=== PATIENT | male | born 1955 | race Caucasian/White ===

== ENCOUNTER 2017-08-02 12:17 | Emergency (ER) | payer MEDICARE, OTHER ==
[~2017-08-02] VITALS: Ht 172.7 cm; Wt 78.0 kg
[~2017-08-02 12:17] MED LIST: ALENDRONATE PO; BENEPROTEIN; CALCIUM CARB PO; CARBAMAZEPINE PO; MVI PO; PHENOBARBITAL PO; PROMETHAZINE/CODEINE PO; REGULOID PO; TRIAMTERENE PO; VIT D3 PO
[2017-08-02] MEDS ORDERED: TETANUS, DIPHTHERIA, PERTUSSIS VAC/PF 0.5ML (>7YR OLD) IM ONE (15:15)
[2017-08-02 15:35] LABS: BASOPHILS % 0.7 % (0.0-2.0); HEMATOCRIT. 35.1 % (42.0-52.0); HEMOGLOBIN. 12.1 g/dL (14.0-18.0); LYMPHOCYTES % 29.1 % (20.0-50.0); MEAN CORPUSCULAR HEMOGLOBIN 30.3 pg (28.0-32.0); MEAN CORPUSCULAR VOLUME 87.8 fL (80.0-94.0); MEAN PLATELET VOLUME 8.9 fl (7.4-10.4); MONOCYTES % 12.1 % (2.0-8.0); NEUTROPHILS % 52.1 % (40.0-76.0); PLATELET 201 x1000/uL (130-400); RED CELL DISTRIBUTION WIDTH 15.8 % (11.6-14.6)
[2017-08-02 15:44] LABS: CHLORIDE 87 mEq/L (98-107)
[2017-08-02 17:41] VITALS: BP 124/86
== END 2017-08-02 17:49 | disposition left against medical advice (07) ==
LOC: ER 13:32
DX: S01.112A Laceration without foreign body of left eyelid and periocular area, initial encounter (principal); W01.0XXA Fall on same level from slipping, tripping and stumbling without subsequent striking against object, initial encounter; Y93.89 Activity, other specified; Y92.89 Other specified places as the place of occurrence of the external cause; Y99.8 Other external cause status; M81.0 Age-related osteoporosis without current pathological fracture; F84.0 Autistic disorder
CPT/HCPCS: 12011; 36415; 71045; 80053; 85025; 90471; 90715; 93005; 99285

== ENCOUNTER 2018-11-04 21:43 | Emergency (ER) | payer MEDICARE, MEDICAID, OTHER ==
[~2018-11-04] VITALS: Ht 175.3 cm; Wt 64.0 kg
[2018-11-04] MEDS ORDERED: ONDANSETRON HCL 4MG/2ML INJ IV STA (23:35)
[2018-11-04] MEDS ORDERED: SODIUM CHLORIDE 0.9% 1,000 ML IV ONE (23:40)
[2018-11-05 00:10] LABS: BASOPHILS % 0.5 % (0.0-2.0); EOSINOPHILS % 1.5 % (0.0-5.0); HEMATOCRIT. 34.4 % (42.0-52.0); HEMOGLOBIN. 11.7 g/dL (14.0-18.0); LYMPHOCYTES % 9.1 % (20.0-50.0); MEAN CORPUSCULAR HEMOGLOBIN 27.3 pg (28.0-32.0); MEAN CORPUSCULAR VOLUME 80.4 fL (80.0-94.0); MEAN PLATELET VOLUME 7.2 fl (7.4-10.4); MONOCYTES % 5.5 % (2.0-8.0); NEUTROPHILS % 83.4 % (40.0-76.0); PLATELET 325 x1000/uL (130-400); RED BLOOD CELL COUNT 4.28 mill/uL (4.7-6.1); RED CELL DISTRIBUTION WIDTH 16.8 % (11.6-14.6)
[2018-11-05 00:17] LABS: CHLORIDE 93 mEq/L (98-107)
[2018-11-05 00:19] LABS: INR 1.2
[2018-11-05 00:26] LABS: PHENOBARBITAL 36.1 ug/mL (15.0-40.0)
[2018-11-05 00:27] LABS: CARBAMAZEPINE 10.2 ug/mL (4-12)
[2018-11-05] MEDS ORDERED: POTASSIUM CHLORIDE 20MEQ TABLET SR PO ONE (00:30)
[2018-11-05 01:00] LABS: CLARITY URINE CLEAR (CLEAR); COLOR URINE DARK YELLOW (YELLOW); KETONES URINE 1+ (NEGATIVE); LEUKOCYTE ESTERASE URINE NEGATIVE (NEGATIVE); NITRITE URINE NEGATIVE (NEGATIVE); OCCULT BLOOD URINE 1+ (NEGATIVE); PROTEIN URINE TRACE (NEGATIVE)
[2018-11-05] MEDS ORDERED: METOCLOPRAMIDE HCL 10MG/2ML VIAL IV ONE (02:15)
[2018-11-05] MEDS ORDERED: METOCLOPRAMIDE HCL 10MG TABLET PO ONE (04:45)
[2018-11-05 05:07] VITALS: BP 144/94
== END 2018-11-05 05:07 | disposition home or self-care (01) ==
LOC: ER 21:43
DX: E86.0 Dehydration (principal); R11.2 Nausea with vomiting, unspecified; Z79.899 Other long term (current) drug therapy
CPT/HCPCS: 36415; 71045; 74018; 80053; 80156; 80184; 81003; 85025; 85610; 93005; 96361; 96374; 99284; J2405; J8597

== ENCOUNTER 2019-06-19 15:38 | Inpatient (IN) | payer MEDICARE, MEDICAID ==
[~2019-06-19] VITALS: Ht 170.2 cm; Wt 48.1 kg
[2019-06-19] MEDS: KCL 10MEQ/50ML PREMIX 50 ML IV SCH ×4 (03:50→23:14)
[2019-06-19] MEDS ORDERED: SODIUM CHLORIDE 0.9% 1,000 ML IV ONE (17:21)
[2019-06-19] MEDS ORDERED: PIPERACILLIN/TAZ 3.375G PREMIX 50 ML IV ONE (17:30)
[2019-06-19] MEDS ORDERED: VANCOMYCIN 1 G PREMIX 200 ML IV ONE (17:30)
[2019-06-19 17:48] LABS: BASOPHILS % 0.3 % (0.0-2.0); EOSINOPHILS % 1.7 % (0.0-5.0); HEMATOCRIT. 25.8 % (42.0-52.0); HEMOGLOBIN. 8.6 g/dL (14.0-18.0); LYMPHOCYTES % 15.1 % (20.0-50.0); MEAN CORPUSCULAR HEMOGLOBIN 27.1 pg (28.0-32.0); MEAN CORPUSCULAR VOLUME 81.2 fL (80.0-94.0); MEAN PLATELET VOLUME 8.8 fl (7.4-10.4); MONOCYTES % 4.5 % (2.0-8.0); NEUTROPHILS % 78.4 % (40.0-76.0); PLATELET 321 x1000/uL (130-400); RED BLOOD CELL COUNT 3.18 mill/uL (4.7-6.1)
[2019-06-19 17:54] LABS: CHLORIDE 116 mEq/L (98-107)
[2019-06-19] MEDS ORDERED: KCL 20MEQ/100ML PREMIX 100 ML IV ONE (18:15)
[2019-06-19] MEDS ORDERED: ACETAMINOPHEN 325MG TABLET PO PRN (18:30)
[2019-06-19] MEDS ORDERED: DEXT 5% WATER + KCL 40MEQ/L 1,000 ML IV ONE (18:30)
[2019-06-19] MEDS ORDERED: POTASSIUM CHLORIDE 20MEQ/PACKET PO ONE (18:30)
[2019-06-19] MEDS ORDERED: ONDANSETRON HCL 4MG/2ML INJ IV PRN (18:30)
[2019-06-19 19:03] LABS: CLARITY URINE CLOUDY (CLEAR); COLOR URINE YELLOW (YELLOW); KETONES URINE NEGATIVE (NEGATIVE); LEUKOCYTE ESTERASE URINE 1+ (NEGATIVE); NITRITE URINE POSITIVE (NEGATIVE); OCCULT BLOOD URINE 3+ (NEGATIVE); PROTEIN URINE 2+ (NEGATIVE); UROBILINOGEN URINE 0.2 E.U./dL (0.2-1.0)
[2019-06-19] MEDS ORDERED: SODIUM CHLORIDE 0.9% 1,000 ML IV SCH (23:00)
[2019-06-20 05:49] LABS: BASOPHILS % 0.2 % (0.0-2.0); EOSINOPHILS % 2.9 % (0.0-5.0); LYMPHOCYTES % 13.8 % (20.0-50.0); MEAN CORPUSCULAR HEMOGLOBIN 26.7 pg (28.0-32.0); MEAN CORPUSCULAR VOLUME 79.5 fL (80.0-94.0); MEAN PLATELET VOLUME 8.4 fl (7.4-10.4); MONOCYTES % 8.9 % (2.0-8.0); NEUTROPHILS % 74.2 % (40.0-76.0); PLATELET 266 x1000/uL (130-400); RED BLOOD CELL COUNT 3.01 mill/uL (4.7-6.1)
[2019-06-20 05:56] LABS: CHLORIDE 121 mEq/L (98-107)
[2019-06-20] MEDS ORDERED: LEVOFLOXACIN 250MG PREMIX 50 ML IV SCH (07:00)
[2019-06-20] MEDS: HEPARIN 5000 UNITS/ML VIAL SUBCUT SCH ×2 (07:53→21:32)
[2019-06-20 09:00] VITALS: BP 100/65
[2019-06-20] MEDS ORDERED: DEXT 5% WATER + KCL 40MEQ/L 1,000 ML IV SCH (09:00)
[2019-06-20] MEDS ORDERED: MAGNESIUM 2 G PREMIX 50 ML IV NR (11:30)
[2019-06-20] MEDS: POTASSIUM CHLORIDE INJ 40 MEQ in DEXTROSE 5% WATER 1,000 ML IV SCH (17:15)
[2019-06-20 20:00] VITALS: BP 104/75
[2019-06-21] VITALS: BP 101/92
[2019-06-21] MEDS: POTASSIUM CHLORIDE INJ 40 MEQ in DEXTROSE 5% WATER 1,000 ML IV SCH ×2 (00:39→11:24)
[2019-06-21 04:00] VITALS: BP 99/72
[2019-06-21 08:00] VITALS: BP 107/67
[2019-06-21] MEDS: LEVOFLOXACIN 250MG PREMIX 50 ML IV SCH (09:26)
[2019-06-21] MEDS: HEPARIN 5000 UNITS/ML VIAL SUBCUT SCH ×2 (09:27→22:45)
[2019-06-21 16:00] VITALS: BP 115/69
[2019-06-21 20:00] VITALS: BP 115/57
[2019-06-22] VITALS: BP 118/66
[2019-06-22] MEDS: POTASSIUM CHLORIDE INJ 40 MEQ in DEXTROSE 5% WATER 1,000 ML IV SCH (03:46)
[2019-06-22 04:00] VITALS: BP 141/63
[2019-06-22 06:51] LABS: BASOPHILS % 0.2 % (0.0-2.0); EOSINOPHILS % 1.9 % (0.0-5.0); HEMATOCRIT. 26.6 % (42.0-52.0); HEMOGLOBIN. 8.9 g/dL (14.0-18.0); LYMPHOCYTES % 12.3 % (20.0-50.0); MEAN CORPUSCULAR HEMOGLOBIN 26.7 pg (28.0-32.0); MEAN CORPUSCULAR VOLUME 79.9 fL (80.0-94.0); MEAN PLATELET VOLUME 8.6 fl (7.4-10.4); MONOCYTES % 3.4 % (2.0-8.0); NEUTROPHILS % 82.2 % (40.0-76.0); PLATELET 249 x1000/uL (130-400); RED BLOOD CELL COUNT 3.32 mill/uL (4.7-6.1); RED CELL DISTRIBUTION WIDTH 18.5 % (11.6-14.6)
[2019-06-22 08:00] VITALS: BP 115/76
[2019-06-22] MEDS: LEVOFLOXACIN 250MG PREMIX 50 ML IV SCH (08:58)
[2019-06-22] MEDS: ZINC SULFATE 220 MG ( 50 ) CAPSULE PO SCH (08:58)
[2019-06-22] MEDS: ASCORBIC ACID 500 MG TABLET PO SCH (08:58)
[2019-06-22] MEDS: HEPARIN 5000 UNITS/ML VIAL SUBCUT SCH ×2 (08:59→21:00)
[2019-06-22 12:00] VITALS: BP 108/73
[2019-06-22 16:00] VITALS: BP 100/65
[2019-06-22 20:00] VITALS: BP 113/69
[2019-06-23] VITALS (7 sets, daily range): BP systolic 102–146; BP diastolic 63–74
[2019-06-23] MEDS: HEPARIN 5000 UNITS/ML VIAL SUBCUT SCH (09:02)
[2019-06-23] MEDS: ZINC SULFATE 220 MG ( 50 ) CAPSULE PO SCH (09:03)
[2019-06-23] MEDS: ASCORBIC ACID 500 MG TABLET PO SCH (09:03)
[2019-06-23] MEDS ORDERED: LEVOFLOXACIN 250MG TABLET PO SCH (11:00)
[2019-06-23] MEDS ORDERED: ZINC1CAP2 PO (12:06)
[2019-06-23] MEDS ORDERED: ASCO500T20 PO (12:06)
[2019-06-23] MEDS ORDERED: HALOPERIDOL LACTATE 5MG/ML VIAL IM NR (18:15)
[2019-06-24] MEDS ORDERED: LEVO250T58 MT (13:53)
[2019-06-25] MEDS ORDERED: MULT473E PO (13:53)
[2019-06-25] MEDS ORDERED: LEVE500T19 MT (13:53)
[2019-06-25] MEDS ORDERED: NA P230E RC (13:53)
[2019-06-25] MEDS ORDERED: TRAM50TA3 MT (13:53)
[2019-06-25] MEDS ORDERED: AMLO5TAB88 PO (13:53)
[2019-06-25] MEDS ORDERED: HJ10 IJ (13:53)
[2019-06-25] MEDS ORDERED: MOM PO (13:53)
[2019-06-25] MEDS ORDERED: PHENOBARBITAL PO (13:53)
[2019-06-25] MEDS ORDERED: FOLI-43 MT (13:53)
[2019-06-25] MEDS ORDERED: BISA10SU62 RC (13:53)
[2019-06-25] MEDS ORDERED: DOCU250C69 PO (13:53)
[2019-06-25] MEDS ORDERED: FAMO20TA8 PO (13:53)
[2019-06-25] MEDS ORDERED: NITR1OIN TD (13:53)
[2019-07-07] MEDS ORDERED: PANT40TA4 MT (12:08)
[2019-07-08] MEDS ORDERED: SUCR1ORA15 PO (11:37)
== END 2019-06-23 23:35 | DRG 682 ==
LOC: ER 15:38 → 7WST 17:22 → EDBEDREQ 17:28 → ENRESERV 20:28 → CANRESERV 20:28 → EDBEDREQSVC 21:22 → ENRESERV 06-20 08:00
PROVIDERS: ADMIT Family Medicine Adult Medicine; ATTEND Family Medicine Adult Medicine
DX: N17.9 Acute kidney failure, unspecified (principal); L89.154 Pressure ulcer of sacral region, stage 4; E43 Unspecified severe protein-calorie malnutrition; R53.2 Functional quadriplegia; N39.0 Urinary tract infection, site not specified; F84.0 Autistic disorder; F05 Delirium due to known physiological condition; E83.42 Hypomagnesemia; E86.0 Dehydration; E87.6 Hypokalemia; F03.90 Unspecified dementia, unspecified severity, without behavioral disturbance, psychotic disturbance, mood disturbance, and anxiety; N18.3 Chronic kidney disease, stage 3 (moderate); D64.9 Anemia, unspecified; I48.91 Unspecified atrial fibrillation; Z79.899 Other long term (current) drug therapy; Z78.1 Physical restraint status
CPT/HCPCS: 36415; 71045; 76770; 80048; 80053; 81003; 83735; 84134; 85025; 92610; 93005; 99285; J1630; J1644; J1956; J2543; J3370; J3475; J3480; J7030; J7040; J7060; J7070